=== PATIENT | female | born 1935 | race Caucasian/White ===

== ENCOUNTER 2018-10-10 14:58 | Inpatient (IN) | payer MEDICARE ==
[~2018-10-10] VITALS: Ht 154.9 cm; Wt 60.8 kg
[~2018-10-10 14:58] MED LIST: ASPIRIN CHEW81 MG PO; ATENOLOL25 MG PO; COMBIVENT RESPIM4 GM IH; FAMOTIDINE20 MG PO; GABAPENTIN300 MG PO; GABAPENTIN600 MG PO; IMDUR60 MG PO; ISOSORBIDE MONO30 MG PO; LEVAQUIN500 MG PO; LEXAPRO10 MG PO; METFORMIN HCL500 MG PO; NORVASC5 MG PO; PLAVIX75 MG PO; RANEXA500 MG PO
[2018-10-10] MEDS ORDERED: SODIUM CHLORIDE 0.9% 1000ML 1,000 ML IV STA (15:35)
--- NOTE | 2018-10-10 15:40 | NUR ---
RECEIVED PT FROM EMS INTO ER6
[2018-10-10 16:19] LABS: BASOPHILS % 0.3 % (0.0-1.0); EOSINOPHILS # (AUTO) 0.1 (0.0-0.4); EOSINOPHILS % 0.9 % (0.0-6.0); HEMATOCRIT 42.2 % (34.2-44.1); HEMOGLOBIN 13.7 g/dL (12.0-16.0); LYMPHOCYTES # (AUTO) 1.8 (1.0-3.2); MEAN CORPUSCULAR HEMOGLOBIN 29.8 pg (28-32); MEAN CORPUSCULAR HGB CONC 32.5 g/dL (31-35); MEAN CORPUSCULAR VOLUME 91.9 fL (81-99); MONOCYTES # (AUTO) 0.6 (0.2-0.8); MONOCYTES % 5.1 % (4.4-11.3); NEUTROPHILS # (AUTO) 9.4 (2.1-6.9); PLATELET COUNT 253 x10e3/uL (140-360); RED BLOOD COUNT 4.59 x10e6/uL (3.6-5.1); RED CELL DISTRIBUTION WIDTH 14.4 % (11.7-14.4)
[2018-10-10 16:27] LABS: INR 1.01; PROTHROMBIN TIME 13.8 seconds (11.9-14.5)
[2018-10-10 16:27] LABS: STREPTOCOCCUS GRP A ANTIGEN NEGATIVE (NEGATIVE)
[2018-10-10 16:37] LABS: INFLUENZAE A&B ANTIGEN (RAPID) NEGATIVE (NEGATIVE)
[2018-10-10 16:38] LABS: ALBUMIN 3.9 g/dL (3.5-5.0); ALBUMIN/GLOBULIN RATIO 1.2 (0.8-2.0); ANION GAP 14.8 mmol/L (8-16); CALCIUM 9.7 mg/dL (8.4-10.2); CREATININE, SERUM 1.27 mg/dL (0.57-1.11); MAGNESIUM 2.3 MG/DL (1.3-2.1); POTASSIUM 3.8 mmol/L (3.5-5.1)
[2018-10-10 16:46] LABS: CREATINE KINASE MB 0.7 ng/mL (0-5.0)
--- NOTE | 2018-10-10 16:56 | Diagnostic Imaging Report ---
Examination: Single AP view of the chest. COMPARISON: None. INDICATION: Passed out DISCUSSION: Lung volumes are low. No consolidation, pleural effusion, or pneumothorax. Tortuous thoracic aorta with atherosclerotic calcification. Normal heart size for technique. Mild prominence of the pulmonary interstitium. No acute osseous abnormality. Posttraumatic deformity of the right clavicular midshaft. IMPRESSION: Low lung volumes with prominence of the pulmonary interstitium, which may reflect vascular crowding or age-related fibrotic changes. Signed by: Dr. Adal Germain M.D. on 10/10/2018 4:52 PM
[2018-10-10] MEDS ORDERED: VANCOMYCIN 1GM/NS 250 ML 250 ML IV STA (17:38)
[2018-10-10] MEDS ORDERED: CEFEPIME HCL 2 GM VIAL IV SCH (17:45)
--- NOTE | 2018-10-10 17:45 | NUR ---
I ASSISTED PT TO THE RESTROOM IN THE WHEELCHAIR TO TRY TO COLLECT URINE. I PLACED A HAT IN THE TOILET BUT SHE HAD MIXED STOOL AND URINE. SHE SAYS SHE ALWAYS HAS DIARRHEA. I NOTIFIED ASHLEY MOONEY THAT I HAVE BEEN UNABLE TO COLLECT URINE YET. WHILE I WAS IN THE BATHROOM WITH THE PATIENT SHE HAD ANOTHER NEAR SYNCOPLE EPISODE WHEN SHE WAS STANDING TRYING TO WASH HER HANDS. SHE FELL BACKWARDS ACROSS THE TOILET BUT I CAUGHT HER.
[2018-10-10] MEDS ORDERED: CEFEPIME 2 GM/NS 0.9% 100 ML 100 ML IV SCH (18:00)
--- NOTE | 2018-10-10 18:46 | Diagnostic Imaging Report ---
ADDENDUM #1 Ligament, spinal cord and or vascular abnormalities cannot be excluded on the basis of this examination. I have reviewed the images and agree with findings in preliminary report. Signed by: Dr. Trina Lee M.D. on 10/10/2018 11:42 PM ORIGINAL REPORT Exam: Noncontrast cervical spine CT History: 83-year-old female, status post syncopal fall Comparison studies: Concurrent head CT Technique: Axial images were obtained through the cervical region. Coronal and sagittal images reconstructed from the axial data. Dose modulation, iterative reconstruction, and/or weight based adjustment of the mA/kV was utilized to reduce the radiation dose to as low as reasonably achievable. Intravenous contrast: None Findings: Airway: Patent. Atlantoaxial articulation: Intact Alignment: Normal lordosis No scoliosis. Cervicomedullary junction: No abnormalities. Patent foramen magnum. Soft tissues: No gross abnormalities. Vertebrae: No fractures, neoplasm or infection. Degenerative changes: Multilevel degenerative changes of the cervical spine without significant canal or foraminal stenosis. IMPRESSION: No acute traumatic injury identified. This is a preliminary report was provided by the neuroradiology fellow. Attending over read to follow. Signed by: Dave Spain MD on 10/10/2018 6:42 PM
--- NOTE | 2018-10-10 18:46 | Diagnostic Imaging Report ---
ADDENDUM #1 I have reviewed the images and agree with findings in preliminary report. Signed by: Dr. Trina Lee M.D. on 10/10/2018 11:39 PM ORIGINAL REPORT Exam: Noncontrast head CT History:83-year-old female, low blood pressure and passed out. Comparison studies: Concurrent cervical spine CT Technique: Axial images were obtained from the skull base to the vertex. Coronal and sagittal images reconstructed from the axial data. Dose modulation, iterative reconstruction, and/or weight based adjustment of the mA/kV was utilized to reduce the radiation dose to as low as reasonably achievable. Intravenous contrast: None Findings: Scalp/skull: No abnormalities. Extra-axial spaces: No masses. No fluid collections. Brain sulci: Mildly prominent. Ventricles: Mild compensatory dilatation. No hydrocephalus. Parenchyma: Scattered hypodensities in the supratentorial white matter are small vessel ischemic changes. No masses, hemorrhage, acute or chronic cortical vascular insults. Sellar/suprasellar region: No abnormalities. Craniocervical junction: Patent foramen magnum. No Chiari one malformation. Incidental findings: Atherosclerotic calcifications in the carotid siphons . Right-sided cataract surgery. Impression: No acute abnormalities. Chronic findings: 1. Mild generalized volume loss. 2. Mild supratentorial white matter small vessel ischemic changes. This is a preliminary report was provided by the neuroradiology fellow, Dr. Dave Spain. Attending over read to follow. Signed by: Dave Spain MD on 10/10/2018 6:39 PM
[2018-10-10 19:32] LABS: CLARITY,URINE SL CLOUDY (CLEAR); COLOR,URINE YELLOW (YELLOW)
[2018-10-10 19:33] LABS: BILIRUBIN,URINE NEGATIVE (NEGATIVE); KETONES,URINE NEGATIVE (NEGATIVE); LEUKOCYTE ESTERASE ,URINE NEGATIVE (NEGATIVE); NITRITE,URINE NEGATIVE (NEGATIVE); PROTEIN,URINE DIPSTICK NEGATIVE (NEGATIVE); URINE UROBILINOGEN 0.2 mg/dL (0.2 - 1)
[2018-10-10] MEDS ORDERED: SODIUM CHLORIDE 0.9% 1000ML 1,000 ML ONE (19:33)
[2018-10-10 19:43] LABS: BACTERIA,URINE MODERATE /HPF; EPITHELIAL CELLS,URINE MODERATE /LPF; MUCUS,URINE MODERATE (RARE)
--- NOTE | 2018-10-10 19:54 | Diagnostic Imaging Report ---
EXAM: CT ABDOMEN/PELVIS WO DATE: 10/10/2018 3:35 PM INDICATION: Low blood pressure, passed out and abdominal pain COMPARISON: None TECHNIQUE: The abdomen and pelvis were scanned using a multidetector helical scanner. Coronal and sagittal reformations were obtained. CT low dose techniques were utilized, as applicable. IV Contrast: 0 ml Isovue 300/370 FINDINGS: Lack of IV contrast decreases sensitivity in evaluating abdominal and pelvic organs. LOWER THORAX: Lung bases clear. Dilated main pulmonary artery measuring 3.2 cm in diameter. Tiny stomach and fat-containing hiatal hernia. Enlarged left atrium. LIVER/BILIARY: No masses. No ductal dilatation. GALLBLADDER: Unremarkable SPLEEN: Unremarkable PANCREAS: Mild fatty replacement. ADRENALS: No nodules KIDNEYS: No stones. No hydronephrosis. GI TRACT: No wall thickening or evidence of obstruction. Colonic diverticulosis. VESSELS: Ectatic, atherosclerotic abdominal aorta measuring up to 2.7 cm. PERITONEUM/RETROPERITONEUM: No free air or fluid LYMPH NODES: No lymphadenopathy REPRODUCTIVE ORGANS/BLADDER: Unremarkable SOFT TISSUES: Unremarkable BONES: Moderate approximately 33% height loss superior endplate compression fracture deformity of the L1 vertebral body. Decreased mineral density. IMPRESSION: Age-indeterminate moderate compression fracture deformity of the superior plate of the L1 vertebral body. This is favored to represent a chronic finding, however clinical correlation can be made. Chronic findings, as described above. Signed by: Dave Spain MD on 10/10/2018 7:50 PM
[2018-10-10] MEDS ORDERED: SODIUM CHLORIDE 0.9% 1000ML 1,000 ML IV ONE (20:00)
[2018-10-10] MEDS ORDERED: ONDANSETRON HCL INJ 2MG/ML 2ML 2 MG/ML VIAL IV PRN (20:00)
[2018-10-10] MEDS ORDERED: FAMOTIDINE 20 MG/2 ML VIAL IV SCH (20:00)
--- OUTSIDE RECORDS SUMMARY | 2018-10-10 21:34 | XMS REPORT ---
[email or web address] Address Unknown Phone Unavailable Care Team Providers Care Systems Support Specialist Name Role Phone Gio HESTER Unavailable Unavailable Problems This patient has no known problems. Allergies, Adverse Reactions, Alerts This patient has no known allergies or adverse reactions. Medications This patient has no known medications. Results Test Description Test Time Test Comments Text Results Atomic Results Result Comments CT ABDOMEN/PELVIS WO 2018-10-10 19:43:00 [place] [address] Patient Name: ROBBIN FERNANDO MR #: [id number] : 1935 Age/Sex: 83/F Req #: [id number] Adm Physician: Ordered by: ASHLEY WILLIAMSON COKEMAN Report #: [id number] Location: ER Room/Bed: Procedure: [id number] CT/CT ABDOMEN/PELVIS WO Exam Date: Exam Time: REPORT STATUS: Signed EXAM: CT ABDOMEN/PELVIS WO DATE: 10/10/2018 3:35 PM INDICATION: Low blood pressure, passed out and abdominal pain COMPARISON: None TECHNIQUE: The abdomen and pelvis were scanned using a multidetector helical scanner. Coronal and sagittal reformations were obtained. CT low dose techniques were utilized, as applicable. IV Contrast: 0 ml Isovue 300/370 FINDINGS: Lack of IV contrast decreases sensitivity in evaluating abdominal and pelvic organs. LOWER THORAX: Lung bases clear. Dilated main pulmonary artery measuring 3.2 cm in diameter. Tiny stomach and fat-containing hiatal hernia. Enlarged left atrium. LIVER/BILIARY: No masses. No ductal dilatation. GALLBLADDER: Unremarkable SPLEEN: Unremarkable PANCREAS: Mild fatty replacement. ADRENALS: No nodules KIDNEYS: No stones. No hydronephrosis. GI TRACT: No wall thickening or evidence of obstruction. Colonic diverticulosis. VESSELS: Ectatic, atherosclerotic abdominal aorta measuring up to 2.7 cm. PERITONEUM/RETROPERITONEUM: No free air or fluid LYMPH NODES: No lymphadenopathy REPRODUCTIVE ORGANS/BLADDER: Unremarkable SOFT TISSUES: Unremarkable BONES: Moderate approximately 33% height loss superior endplate compression fracture deformity of the L1 vertebral body. Decreased mineral density. IMPRESSION: Age-indeterminate moderate compression fracture deformity of the superior plate of the L1 vertebral body. This is favored to represent a chronic finding, however clinical correlation can be made. Chronic findings, as described above. Signed by: Dave Spain MD on 10/10/2018 7:50 PM Dictated By: AG SPAIN MD 49 Transcribed By: GIRISH on 10/10/181949 COPY TO: ASHLEY WILLIAMSON NP CT CERVICAL SPINE WO 2018-10-10 18:39:00 [place] [address] Patient Name: ROBBIN FERNANDO MR #: [id number] : 1935 Age/Sex: 83/F Req #: [id number] Adm Physician: Ordered by: ASHLEY WILLIAMSON NP Report #: [id number] Location: ER Room/Bed: Procedure: [id number] CT/CT CERVICAL SPINE WO Exam Date: Exam Time: REPORT STATUS: Signed Exam: Noncontrast cervical spine CT History: 83-year-old female, status post syncopal fall Comparison studies: Concurrent head CT Technique: Axial images were obtained through the cervical region. Coronal and sagittal images reconstructed from the axial data. Dose modulation, iterative reconstruction, and/or weight based adjustment of the mA/kV was utilized to reduce the radiation dose to as low as reasonably achievable. Intravenous contrast: None Findings: Airway: Patent. Atlantoaxial articulation: Intact Alignment: Normal lordosis No scoliosis. Cervicomedullary junction: No abnormalities. Patent foramen magnum. Soft tissues: No gross abnormalities. Vertebrae: No fractures, neoplasm or infection. Degenerative changes: Multilevel degenerative changes of the cervical spine without significant canal or foraminal stenosis. IMPRESSION: No acute traumatic injury identified. This is a preliminary report was provided by the neuroradiology fellow. Attending over read to follow. Signed by: Dave Spain MD on 10/10/2018 6:42 PM Dictated By: AG SPAIN MD 41 Transcribed By: GIRISH on 10/10/181841 COPY TO: SAHLEY WILLIAMSON NP CT BRAIN WO 2018-10-10 18:37:00 [place] [address] Patient Name: ROBBIN FERNANDO MR #: [id number] : 1935 Age/Sex: 83/F Req #: [id number] Adm Physician: Ordered by: ASHLEY WILLIAMSON COKEMAN Report #: [id number] Location: ER Room/Bed: Procedure: [id number] CT/CT BRAIN WO Exam Date: Exam Time: REPORT STATUS: Signed Exam: Noncontrast head CT History:83-year-old female, low blood pressure and passed out. Comparison studies: Concurrent cervical spine CT Technique: Axial images were obtained from the skull base to the vertex. Coronal and sagittal images reconstructed from the axial data. Dose modulation, iterative reconstruction, and/or weight based adjustment of the mA/kV was utilized to reduce the radiation dose to as low as reasonably achievable. Intravenous contrast: None Findings: Scalp/skull: No abnormalities. Extra-axial spaces: No masses. No fluid collections. Brain sulci: Mildly prominent. Ventricles: Mild compensatory dilatation. No hydrocephalus. Parenchyma: Scattered hypodensities in the supratentorial white matter are small vessel ischemic changes. No masses, hemorrhage, acute or chronic cortical vascular insults. Sellar/suprasellar region: No abnormalities. Craniocervical junction: Patent foramen magnum. No Chiari one malformation. Incidental findings: Atherosclerotic calcifications in the carotid siphons . Right-sided cataract surgery. Impression: No acute abnormalities. Chronic findings: 1. Mild generalized volume loss. 2. Mild supratentorial white matter small vessel ischemic changes. This is a preliminary report was provided by the neuroradiology fellow, Dr. Dave Spain. Attending over read to follow. Signed by: Dave Spain MD on 10/10/2018 6:39 PM Dictated By: AG SPAIN MD 38 Transcribed By: GIRISH on 10/10/181838 COPY TO: ASHLEY WILLIAMSON NP CHEST SINGLE (PORTABLE) 2018-10-10 16:51:00 [place] [address] Patient Name: ROBBIN FERNANDO MR #: [id number] : 1935 Age/Sex: 83/F Req #: [id number] Adm Physician: Ordered by: ASHLEY WILLIAMSON NP Report #: [id number] Location: ER Room/Bed: Procedure: [id number] DX/CHEST SINGLE (PORTABLE) Exam Date: Exam Time: REPORT STATUS: Signed Examination: Single AP view of the chest. COMPARISON: No ne. INDICATION: Passed out DISCUSSION: Lung volumes are low. No consolidation, pleural effusion, or pneumothorax. Tortuous thoracic aorta with atherosclerotic calcification. Normal heart size for technique. Mild prominence of the pulmonary interstitium. No acute osseous abnormality. Posttraumatic deformity of the right clavicular midshaft. IMPRESSION: Low lung volumes with prominence of the pulmonary interstitium, which may reflect vascular crowding or age-related fibrotic changes. Signed by: Dr. Gunner Londono M.D. on 10/10/2018 4:52 PM Dictated By: GUNNER LONDONO MD 51 Transcribed By: GIRISH on 10/10/181651 COPY TO: ASHLEY WILLIAMSON NP
[2018-10-10] MEDS ORDERED: PANTOPRAZOLE SO40 MG PO (21:35)
[2018-10-10] MEDS ORDERED: SERTRALINE HCL50 MG PO (21:35)
[2018-10-10] MEDS ORDERED: HYDRALAZINE HCL25 MG PO (21:35)
--- NOTE | 2018-10-10 22:10 | NUR ---
PT ARRIVED TO THE UNIT FROM ER IN A STRETCHER.AAOX2.CONFUSED @ TIMES.ASSESSMENT DONE.NO RESP.DISTRESS.NO PAIN VOICED.FAMILY MEMBER PROVIDED THE HISTORY.IV RAC#20 PATENT.NS RUNNING @75ML/HR.TELE #[address]FELL @ HOME TODAY.BED LOCKED AND IN LOWEST POSITION.PHONE AND CALL LIGHT WITHIN REACH.INSTRUCTED TO CALL FOR ASSISTANCE NEEDED.BED ALARM IS ON.ORIENTED THE PT AND FAMILY TO THE UNIT.
[2018-10-10 22:37] VITALS: BP 165/81
[2018-10-10 22:40] VITALS: BP 165/81
[2018-10-10 23:32] VITALS: BP 165/81
[2018-10-10 23:48] VITALS: BP 141/72
[2018-10-11] VITALS (7 sets, daily range): BP systolic 126–185; BP diastolic 59–84
[2018-10-11 01:26] LABS: CREATINE KINASE 28 IU/L (29-168)
[2018-10-11 03:09] LABS: CREATINE KINASE MB < 1.00 ng/mL (0-4.3)
--- NOTE | 2018-10-11 06:31 | NUR ---
Rested well during night.had no bowel movement.stable condition.
--- NOTE | 2018-10-11 06:50 | NUR ---
REPORT GIVEN TO THE ONCOMING RN.WALKING ROUNDS DONE.STABLE CONDITION.
[2018-10-11 06:57] LABS: BASOPHILS % 0.3 % (0.0-1.0); EOSINOPHILS # (AUTO) 0.2 (0.0-0.4); EOSINOPHILS % 2.5 % (0.0-6.0); HEMATOCRIT 36.8 % (34.2-44.1); HEMOGLOBIN 12.4 g/dL (12.0-16.0); LYMPHOCYTES # (AUTO) 2.1 (1.0-3.2); LYMPHOCYTES % 23.2 % (18.0-39.1); MEAN CORPUSCULAR HEMOGLOBIN 30.8 pg (28-32); MEAN CORPUSCULAR HGB CONC 33.7 g/dL (31-35); MEAN CORPUSCULAR VOLUME 91.5 fL (81-99); MONOCYTES # (AUTO) 0.7 (0.2-0.8); MONOCYTES % 7.3 % (4.4-11.3); NEUTROPHILS # (AUTO) 6.1 (2.1-6.9); NEUTROPHILS % 66.4 % (38.7-80.0); PLATELET COUNT 197 x10e3/uL (140-360); RED BLOOD COUNT 4.02 x10e6/uL (3.6-5.1); RED CELL DISTRIBUTION WIDTH 14.5 % (11.7-14.4)
[2018-10-11 07:17] LABS: ALBUMIN 3.2 g/dL (3.5-5.0); ALBUMIN/GLOBULIN RATIO 1.2 (0.8-2.0); ANION GAP 11.9 mmol/L (8-16); CALCIUM 8.6 mg/dL (8.4-10.2); CHOL/HDL RATIO 5.1 (3.0-3.6); CREATININE, SERUM 0.99 mg/dL (0.57-1.11); POTASSIUM 3.9 mmol/L (3.5-5.1)
--- NOTE | 2018-10-11 07:30 | NUR ---
Received patient and walking rounds complete. Patient awake at this time, no signs of distress. Family at bedside. Call light in reach, will continue to monitor.
[2018-10-11] MEDS ORDERED: HYDRALAZINE HCL 20 MG/ML VIAL IV PRN (08:30)
[2018-10-11] MEDS ORDERED: CEFTRIAXONE SOD 2 GM/NS 100 ML 100 ML IV SCH (08:30)
[2018-10-11] MEDS ORDERED: ACETAMINOPHEN 325 MG TAB PO PRN (08:45)
[2018-10-11] MEDS: CEFTRIAXONE SOD 2 GM/NS 100 ML 100 ML IV SCH (09:30)
[2018-10-11] MEDS: SODIUM CHLORIDE 0.9% 1000ML 1,000 ML IV SCH ×2 (09:30→22:00)
[2018-10-11] MEDS: HYDRALAZINE HCL 25 MG TAB PO SCH ×2 (09:30→16:47)
[2018-10-11] MEDS: PANTOPRAZOLE SOD 40 MG TABEC PO SCH (09:30)
[2018-10-11] MEDS: CLOPIDOGREL BISULFATE 75 MG TAB PO SCH (09:30)
[2018-10-11 12:36] LABS: CREATINE KINASE MB 0.7 ng/mL (0-5.0)
[2018-10-11] MEDS ORDERED: LOPERAMIDE HCL 2 MG CAP PO PRN (13:00)
--- NOTE | 2018-10-11 13:05 | Consultation ---
DATE OF CONSULTATION: 10/10/2018 REASON FOR CONSULTATION: Near syncope. CONSULTING PHYSICIAN: HISTORY OF PRESENT ILLNESS: This is a pleasant 83-year-old female, who presented with near syncope. According to the patient and family at the bedside, she had been having recurrent syncope and fall, and she was brought in to the emergency room for evaluation. In the ER, she was found with altered mental status and low blood pressure. She has a history of CAD with cardiac stents in the past. She denied any chest pain, any palpitations, any shortness of breath, any diaphoresis, any headache, nausea, or vomiting. Troponin was negative. EKG showed sinus bradycardia with no ST abnormalities. PAST MEDICAL HISTORY: CAD, hypertension, dysphagia, altered mental status, GA, anxiety, and hyperlipidemia. PAST SURGICAL HISTORY: and cardiac catheterization with stent placement. FAMILY HISTORY: Noncontributory. SOCIAL HISTORY: She lives at home with her . MEDICATIONS: She was on Plavix, Pepcid, gabapentin, hydralazine, Protonix, Zoloft, and isosorbide. ALLERGIES: SHE IS ALLERGIC TO IODINE AND SULFA. REVIEW OF SYSTEMS: Negative except as mentioned above. PHYSICAL EXAMINATION: VITAL SIGNS: Temperature 97, heart rate 55, blood pressure 126/59, respirations 20, and oxygen saturation 95% on room air. GENERAL: She is awake, alert, and oriented x3. HEENT: Mucous membranes are moist. NECK: Supple. LUNGS: Bilateral clear to auscultation. CARDIOVASCULAR: S1 and S2 present. ABDOMEN: Soft. NEUROLOGIC: Intact. EXTREMITIES: With no edema. LABORATORY DATA: Sodium 133, potassium 3.9, chloride 103, CO2 22, BUN 20, creatinine 0.99, and glucose 104. White blood cell initially was 12, but today is 9.21; hemoglobin 12.4, hematocrit 36.8, and platelets 197. PT 13.8, PTT 27.0, and INR 1.01. IMPRESSION: 1. Syncope. 2. Status post fall. 3. Coronary artery disease with stents. 4. Debility. 5. Sinus bradycardia. 6. Possible dehydration. 7. History of chronic diarrhea. 8. Acute renal insufficiency. 9. Possible urinary tract infection. 10. Hyponatremia. 11. Elevated white blood count. PLAN: 1. We will go ahead and get an echocardiogram to assess the LV and the valve function. 2. Should get bilateral carotid Doppler to rule out any occlusion. 3. We will put her on IV fluid and check her TSH. 4. Heart rate staying in 55 to 60 and she is asymptomatic. Further cardiac workup pending clinical course. Thank you for this consultation. Dictated by Vazquez Short NP Barrett PACHECOI/MODL /[id number]
--- NOTE | 2018-10-11 14:10 | NUR ---
Visit made by the Spiritual Care Department Pastoral Visitor, Ara Lee. PV provided pastoral presence, prayer, hospitality, and supportive listening. Pastoral Visitor informed pt/family of the scope of Visual Training Aide Services and availability. GEOVANNY SANTIAGO Marine Firefighter Spiritual Care Department O: [phone] Pager: [phone] ([phone] number calling from)
--- NOTE | 2018-10-11 15:26 | History and Physical ---
CHIEF COMPLAINT: Syncope and fall. HISTORY OF PRESENT ILLNESS: This is an 83-year-old female with past medical history of atherosclerotic heart disease, mild CKD, hypertension, mild dementia, who was in her usual state of health until the patient came to the emergency room with syncope and fall. CT of the head is negative. There are no seizures and no focal weakness. She has chronic diarrhea. She has some mild abdominal pain, has GERD. No chest pain. No shortness of breath. No leg pain or leg swelling. No backache. No burning urination or dysuria. ALLERGIES: ALLERGIC TO SULFA AND IODINE. PAST MEDICAL HISTORY: 1. Hypertension. 2. Chronic diarrhea. 3. COPD. 4. Atherosclerotic heart disease. 5. Hypertension. 6. Mild early dementia. PAST SURGICAL HISTORY: History of PTCA, stent for coronary artery disease. SOCIAL HISTORY: The patient is . Lives with her . She also has a daughter, who is taking care of her. HABITS: Denies smoking. Denies alcohol use. Denies illicit drug use. FAMILY HISTORY: Noncontributory. MEDICATION LIST: Attached. REVIEW OF SYSTEMS: CONSTITUTIONAL: Denies fatigue or weakness. HEENT: No diplopia or blurred vision. CARDIOPULMONARY: No chest pain. No shortness of breath. No cough. ALIMENTARY: No nausea, but has some abdominal pain and diarrhea. GENITOURINARY: No dysuria. No hematuria. MUSCULOSKELETAL: She has some joint pain. CENTRAL NERVOUS: No focal weakness, but has syncope. No seizures. PHYSICAL EXAMINATION: GENERAL: An 83-year-old female, who is alert and oriented . VITAL SIGNS: Temperature , pulse 56, respiratory rate 16, and blood pressure 121/72. HEENT: Head is atraumatic and normocephalic. Pupils are bilaterally equal and reactive to light. Extraocular muscles are intact. Tongue is dry. Sclerae and conjunctivae are normal. NECK: Supple. No JVD. No carotid bruits. SKIN: Dry. LUNGS: Clear to auscultation and percussion bilaterally. No added sounds. HEART: S1 and S2. Regular rate and rhythm. No S3, no S4 murmur. ABDOMEN: Soft and nontender. No guarding. No rigidity. EXTREMITIES: No pitting edema. Peripheral pulses are 1+. DRAY DRIVER: Grossly nonfocal. LABORATORY DATA: White count 12, hemoglobin and hematocrit normal. Sodium 134, potassium 3.8, BUN 23, creatinine 1.27, and glucose 145. LFTs normal. Amylase and lipase normal. CK and CK-MB normal. LDL is 109, triglycerides 158, and cholesterol 175. Thyroid function test pending. Chest x-ray, no pneumonia. C-spine normal. Brain CT, white matter ischemic changes. No new changes. CT abdomen, no significant changes. Urine is bacteria plus. ASSESSMENT: 1. Syncope, rule out cardiac versus orthostatic hypotension. 2. Dehydration. 3. Urinary tract infection. 4. Atherosclerotic heart disease. 5. Coronary artery disease, status post PTCA, stent. 6. Hypertension. 7. History of chronic obstructive pulmonary disease. 8. Mild chronic kidney disease. PLAN: IV fluids. Normal saline at 75 mL per hour. IV Rocephin 2 g daily. BNP 340, assess in a.m. Cardiology consult. Continue all home medicines except hold blood pressure pills. Continue Protonix, Plavix, and hydralazine. Case discussed with the family. Prognosis guarded. MD SHAHZAD Woodruff/EDMUNDO /[id number]
[2018-10-11 16:11] LABS: CREATINE KINASE MB 0.7 ng/mL (0-5.0)
--- NOTE | 2018-10-11 17:46 | NUR ---
Report called to Antonieta, patient moving to room 200.
--- NOTE | 2018-10-11 18:00 | NUR ---
RCD PT FROM MED SURG 1 BY WHEEL CHAIR PT IS ALERT AND ORIENTED VITALS CHECKED PT RESTING ON BED FAMILY AT BED SIDE BED LOW AND LOCKED CALL LIGHT IN REACH
--- NOTE | 2018-10-11 18:47 | NUR ---
PATIENT RESTING ON BED BED SIDE REPORT GIVEN TO ONCOMING NURSE
[2018-10-12] VITALS (7 sets, daily range): BP systolic 131–169; BP diastolic 64–91
[2018-10-12 05:30] LABS: ANION GAP 13.9 mmol/L (8-16); CALCIUM 9.4 mg/dL (8.4-10.2); CREATININE, SERUM 0.97 mg/dL (0.57-1.11); POTASSIUM 3.9 mmol/L (3.5-5.1)
[2018-10-12 05:55] LABS: FREE T4 (FREE THYROXINE) 1.04 ng/dL (0.9-1.8); THYROID STIMULATING HORMONE 2.576 uIU/mL (0.350-4.940)
--- NOTE | 2018-10-12 08:36 | NUR ---
IMM letter delivered and explained to pt and her daughter at bedside. They verbalized understanding. Pt's daughter Queenie Key signed form. Signed form filed in chart. Copy to pt's daughter.
[2018-10-12] MEDS: PANTOPRAZOLE SOD 40 MG TABEC PO SCH (09:01)
[2018-10-12] MEDS: CEFTRIAXONE SOD 2 GM/NS 100 ML 100 ML IV SCH (09:01)
[2018-10-12] MEDS: CLOPIDOGREL BISULFATE 75 MG TAB PO SCH (09:01)
[2018-10-12] MEDS: HYDRALAZINE HCL 25 MG TAB PO SCH ×2 (09:01→17:09)
[2018-10-12] MEDS: SODIUM CHLORIDE 0.9% 1000ML 1,000 ML IV SCH ×2 (12:01→20:15)
--- NOTE | 2018-10-12 19:00 | NUR ---
Patient visited in room during nursing rounds. Patient alert and oriented x2-3 (i.e. pt has intermittent confusion but easily re-oriented). Granddaughter at bedside. Daughter (Queenie) plans to stay with patient tonight. On IVF (NS @ 75 ml/hr) and scheduled IV antibiotics. V/S stable. Patient due to void post truong removal at 1700. Patient aware to call prn. Bed alarm active. Will monitor closely.
--- NOTE | 2018-10-12 20:00 | NUR ---
Patient ambulated to bathroom with assistance. Pt steady on feet and urinated in bathroom post truong removal.
--- NOTE | 2018-10-12 23:59 | NUR ---
Patient visited in room per daughter (Queenie) request. Daughter claims pt is very confused at this time and shows big signs of infection. V/S check reveals: BP 157/74, HR 86, R 18, Temp 97.7 and 93% on 2L NC. Patient able to answer questions correctly (as asked by nurse Sundeep). Daughter still adamant pt is confused and wants Dr. Salina Charles to be notified immediately. Nurse (Sundeep) informs he will give Dr. Salina Charles a call.
[2018-10-13] VITALS: BP 157/74
--- NOTE | 2018-10-13 00:12 | NUR ---
Spoke with Dr. Salina Charles (over phone) and informed about patient's condition (V/S and intermittent confusion) and that daughter (Queenie) was adamant that he be notified and see if there's anything else that could be done for the patient. MD aware and ordered to do STAT CT brain without contrast, consult Dr. Rojas (Re: AMS) and AM labs (CBC, CMP).
--- NOTE | 2018-10-13 00:15 | NUR ---
Patient's daughter (Queenie) informed about Dr. Salina Charles's orders and that he was aware of patient's condition. Daughter appear confused and upset over Dr. Charles's decision to order CT of brain. Daughter stated he will just wait for Dr. Salina Charles in the morning to talk to him herself.
--- NOTE | 2018-10-13 00:30 | NUR ---
solid waste landfill technician in room and was about to take patient for CT of brain but patient blatantly refused the CT order. This event will be passed on to dayshift RN and Dr. Charles during MD rounds in the morning.
[2018-10-13 04:00] VITALS: BP 138/65
[2018-10-13 05:02] LABS: BASOPHILS % 0.2 % (0.0-1.0); EOSINOPHILS # (AUTO) 0.1 (0.0-0.4); EOSINOPHILS % 1.1 % (0.0-6.0); HEMATOCRIT 36.7 % (34.2-44.1); LYMPHOCYTES # (AUTO) 2.4 (1.0-3.2); MEAN CORPUSCULAR HEMOGLOBIN 30.2 pg (28-32); MEAN CORPUSCULAR HGB CONC 32.7 g/dL (31-35); MEAN CORPUSCULAR VOLUME 92.4 fL (81-99); MONOCYTES # (AUTO) 0.8 (0.2-0.8); MONOCYTES % 8.2 % (4.4-11.3); NEUTROPHILS # (AUTO) 6.6 (2.1-6.9); NEUTROPHILS % 66.1 % (38.7-80.0); PLATELET COUNT 199 x10e3/uL (140-360); RED BLOOD COUNT 3.97 x10e6/uL (3.6-5.1); RED CELL DISTRIBUTION WIDTH 14.5 % (11.7-14.4)
[2018-10-13 05:24] LABS: ALANINE AMINOTRANSFERASE 12 IU/L (0-55); ALBUMIN 3.1 g/dL (3.5-5.0); ALBUMIN/GLOBULIN RATIO 1.1 (0.8-2.0); ALKALINE PHOSPHATASE 81 IU/L (40-150); ANION GAP 9.7 mmol/L (8-16); BLOOD UREA NITROGEN 14 mg/dL (7-26); BUN/CREATININE RATIO 17 (6-25); CALCIUM 8.7 mg/dL (8.4-10.2); CARBON DIOXIDE 22 mmol/L (22-29); CHLORIDE 105 mmol/L (98-107); CREATININE, SERUM 0.83 mg/dL (0.57-1.11); EST GLOMERULAR FILTRATION RATE > 60 ML/MIN (60-); GLUCOSE 110 mg/dL (74-118); POTASSIUM 3.7 mmol/L (3.5-5.1); SODIUM 133 mmol/L (136-145)
--- NOTE | 2018-10-13 06:35 | NUR ---
Spoke with Dr. oMnica Rojas and informed her about new consult (re: altered mental status). Dr. Rojas aware and said she will see patient today.
--- NOTE | 2018-10-13 07:51 | NUR ---
SPOKE WITH PATIENT AND PATIENT'S DAUGHTER AT THE BEDSIDE. PATIENT AND DAUGHTER ARE REFUSING CT SCAN OF THE BRAIN. PATIENT STATES "DR. DICK SAID I AM LEAVING AT 8 THIS MORNING." PATIENT ALSO STATES SHE "DOES NOT WANT TO BE HERE AND WANTS TO GO HOME." DAUGHTER EXPLAINS THAT SHE BELIEVES IT IS MEDICATION CAUSING HER INCREASED CONFUSION. DAUGHTER STATES PATIENT WAS REPORTED TO HAVE FEVER AND LOW OXYGEN SATURATION ACCORDING TO HER NIECE THAT WAS AT THE BEDSIDE LAST NIGHT. ACCORDING TO VITAL SIGNS DONE AT 0400 PATIENT HAD LOW GRADE FEVER OF 99.6. VICKI AUTOMOBILE MECHANIC ASSISTANT NURSE ADMINISTERED A DOSE OF TYLENOL. O2 SATURATION THROUGHOUT THE NIGHT ACCORDING TO DOCUMENTATION WAS >93%. PATIENT'S DAUGHTER WANTS TO SPEAK TO DR. ROJAS REGARDING PATIENT'S MEDICATIONS. AND ALSO WITH DR. DICK.
[2018-10-13 08:21] VITALS: BP 144/64
[2018-10-13] MEDS: CEFTRIAXONE SOD 2 GM/NS 100 ML 100 ML IV SCH ×3 (08:36→09:00)
[2018-10-13] MEDS: PANTOPRAZOLE SOD 40 MG TABEC PO SCH (08:37)
[2018-10-13] MEDS: HYDRALAZINE HCL 25 MG TAB PO SCH (08:37)
[2018-10-13] MEDS: CLOPIDOGREL BISULFATE 75 MG TAB PO SCH (08:37)
[2018-10-13 08:43] VITALS: BP 144/64
[2018-10-13] MEDS ORDERED: KEFLEX500 MG PO (09:51)
== END 2018-10-13 10:23 | disposition home or self-care (01) | DRG 683 ==
LOC: ER 14:58 → ERHOLD 21:32 → MED/SURG 22:11 → MED/SURG2 10-11 17:57
PROVIDERS: ADMIT Internal Medicine; ATTEND Internal Medicine
DX: N17.9 Acute kidney failure, unspecified (principal); N39.0 Urinary tract infection, site not specified; E87.1 Hypo-osmolality and hyponatremia; I13.0 Hypertensive heart and chronic kidney disease with heart failure and stage 1 through stage 4 chronic kidney disease, or unspecified chronic kidney disease; I50.22 Chronic systolic (congestive) heart failure; F03.90 Unspecified dementia, unspecified severity, without behavioral disturbance, psychotic disturbance, mood disturbance, and anxiety; J44.9 Chronic obstructive pulmonary disease, unspecified; E86.0 Dehydration; I25.10 Atherosclerotic heart disease of native coronary artery without angina pectoris; R00.1 Bradycardia, unspecified; I25.2 Old myocardial infarction; W19.XXXA Unspecified fall, initial encounter; N18.9 Chronic kidney disease, unspecified; I11.0 Hypertensive heart disease with heart failure; Z91.81 History of falling; Z95.5 Presence of coronary angioplasty implant and graft; K21.9 Gastro-esophageal reflux disease without esophagitis
CPT/HCPCS: 36415; 51700; 70450; 71045; 72125; 74176; 80048; 80053; 80061; 81001; 82150; 82550; 82553; 83518; 83605; 83690; 83735; 84439; 84443; 84484; 85025; 85610; 85730; 87040; 87070; 87086; 87400; 93005; 93306; 93880; 97139; 99284; J0360; J0696; J2405; J3370; J7030